=== PATIENT | female | born 1935 | race Two or more races ===

== ENCOUNTER 2017-01-04 12:48 | Inpatient (IN) | payer OTHER ==
--- NOTE | 2017-01-04 13:11 | PDOC ---
History of Present Illness - History of Present Illness Initial Comments: 01/04/17 13:45 Patient is an 80 year old female with significant medical hx of HTN, CAD, cardiomyopathy, s/p pacemaker, gastritis, dementia, and anxiety/depression who has been sent to the ED by PMD for three days of weakness and AMS. Patient is accompanied by family members who provided history. The patient saw PMD, Dr. Knight, in the office today for complaint of headache and drowsiness. The patient also had complaints of behavioral changes. Family reports that the patient has been more confused and today the patient didn't want to take her medications. Due to dementia, the patient had difficulty characterizing her symptoms. She notes that she has been taking clonazepam for sleep. Denies fevers, chills, nausea, vomiting, diarrhea. PMD: Antonia Patel MD <Debbie Joe - Last Filed: 01/04/17 14:39> - General History Source: Patient Exam Limitations: No Limitations <Ashu Barahona - Last Filed: 01/04/17 15:00> - General Chief Complaint: Altered Mental Status Stated Complaint: AMS Time Seen by Provider: 01/04/17 12:57 Past History <Debbie Joe - Last Filed: 01/04/17 14:39> - Past Medical History Cardiac Disorders: Yes Dementia: ([place].) HTN: Yes Suicide Attempt (Hx): No - Surgical History Cardiac Surgery: Yes (PM: 04/2015) - Psycho/Social/Smoking Cessation Hx Anxiety: No Suicidal Ideation: No Smoking History: Never smoked Hx Alcohol Use: No Drug/Substance Use Hx: No Substance Use Type: None <Ashu Barahona - Last Filed: 01/04/17 15:00> - Past Medical History Allergies/Adverse Reactions: Allergies Allergy/AdvReac Type Severity Reaction Status Date / Time Penicillins Allergy Unknown Verified 01/04/17 12:51 Home Medications: Ambulatory Orders Acetaminophen 325 mg PO DAILY 01/04/17 Aspirin [Aspirin EC] 81 mg PO DAILY 01/04/17 Bisacodyl [Correctol] 5 mg PO DAILY 01/04/17 Carvedilol [Coreg] 6.25 mg PO DAILY 01/04/17 Citalopram Hydrobromide [Celexa -] 10 mg PO DAILY 01/04/17 Diclofenac Sodium [Voltaren] 100 gm TP DAILY 01/04/17 Digoxin [Lanoxin -] 0.25 mg PO DAILY 01/04/17 Ergocalciferol [Drisdol -] 50,000 unit PO Q7D@1000 01/04/17 Furosemide [Lasix] 20 mg PO DAILY 01/04/17 Halobetasol Prop 0.05% Tp Crm [Ultravate (Nf)] 1 applic TP DAILY 01/04/17 Losartan Potassium 50 mg PO DAILY 01/04/17 Memantine HCl [Namenda Xr] 14 mg PO DAILY 01/04/17 Mirabegron [Myrbetriq] 50 mg PO DAILY 01/04/17 Rosuvastatin Calcium [Crestor] 10 mg PO DAILY 01/04/17 Review of Systems - Review of Systems Comments:: 01/04/17 13:53 GENERAL/CONSTITUTIONAL: Weakness, drowsiness. No fever or chills. HEAD, EYES, EARS, NOSE AND THROAT: No change in vision. No ear pain or discharge. No sore throat. CARDIOVASCULAR: No chest pain or shortness of breath. RESPIRATORY: No cough, wheezing, or hemoptysis. GASTROINTESTINAL: No nausea, vomiting, diarrhea or constipation. GENITOURINARY: No dysuria, frequency, or change in urination. MUSCULOSKELETAL: No joint or muscle swelling or pain. No neck or back pain. SKIN: No rash NEUROLOGIC: Confusion, headaches. No vertigo, loss of consciousness, or change in strength/sensation. <Debbie Joe - Last Filed: 01/04/17 14:39> *Physical Exam - Vital Signs Last Vital Signs Temp Pulse Resp BP Pulse Ox 98.7 F 80 20 137/60 96 01/04/17 12:50 01/04/17 12:50 01/04/17 12:50 01/04/17 12:50 01/04/17 12:50 - Physical Exam Comments: 01/04/17 13:54 GENERAL: Awake, alert, in no acute distress HEAD: No signs of trauma EYES: PERRLA, EOMI, sclera anicteric, conjunctiva clear ENT: Auricles normal inspection, hearing grossly normal, nares patent, oropharynx clear without exudates. Moist mucosa NECK: Normal ROM, supple, no lymphadenopathy, JVD, or masses LUNGS: Breath sounds equal, clear to auscultation bilaterally. No wheezes, and no crackles HEART: Regular rate and rhythm, normal S1 and S2, no murmurs, rubs or gallops ABDOMEN: Soft, nontender, normoactive bowel sounds. No guarding, no rebound. No masses EXTREMITIES: Normal range of motion, no edema. No clubbing or cyanosis. No cords, erythema, or tenderness NEUROLOGICAL: AAOx1. Confused. Cranial nerves II through XII grossly intact. Normal speech, normal gait SKIN: Warm, Dry, normal turgor, no rashes or lesions noted. ENDOCRINE: No increased thirst. No abnormal weight change. HEMATOLOGIC/LYMPHATIC: No anemia, easy bleeding, or history of blood clots. ALLERGIC/IMMUNOLOGIC: No hives or skin allergy. <Debbie Joe - Last Filed: 01/04/17 14:39> Heart Score/ECG Review #1 ECG reviewed & interpreted by me at: 13:50 01/04/17 14:11 NSR 75, LBBB, scarbossa negative, QTC 500 msec <Ashu Barahona - Last Filed: 01/04/17 15:00> ED Treatment Course - LABORATORY CBC & Chemistry Diagram: 01/04/17 13:20 01/04/17 13:20 - ADDITIONAL ORDERS Additional order review: 01/04/17 13:20 RBC 4.76 MCV 88.3 MCHC 32.9 RDW 13.5 MPV 7.6 Neutrophils % 57.8 Lymphocytes % 25.5 D Monocytes % 13.0 H Eosinophils % 2.7 Basophils % 1.0 - RADIOLOGY Radiograph Interpretation: 01/04/17 14:39 Chest X-Ray Impression: Large heart. Pacemaker. New congestive changes since 06/09/2016. Reported By: Matthew Cage MD Head CT Impression: No significant interval change or gross acute intracranial pathology is identified. Reported By: Lokesh Menchaca MD <Debbie Joe - Last Filed: 01/04/17 14:39> - LABORATORY CBC & Chemistry Diagram: 01/04/17 13:20 01/04/17 13:20 - RADIOLOGY Radiology Studies Ordered: Category Date Time Status HEAD CT WITHOUT CONTRAST [CT] Stat CT Scan 01/04/17 13:09 Ordered CHEST X-RAY PORTABLE* [RAD] Stat Radiology 01/04/17 13:09 Ordered <Ashu Barahona - Last Filed: 01/04/17 15:00> Medical Decision Making - Medical Decision Making 01/04/17 13:17 A portion of this note was documented by scribe services under my direction. I have reviewed the details of the note, within reason, and agree with the documentation with the following case summary and management plan written by me. Patient treated in the ED. Nursing notes are reviewed and incorporated into the medical decision-making. Vital signs reviewed. Peripheral IV access obtained by the nurse, laboratory studies are drawn and sent, reviewed and interpreted by myself. Vital Signs Temp Pulse Resp BP Pulse Ox 98.7 F 80 20 137/60 96 01/04/17 12:50 01/04/17 12:50 01/04/17 12:50 01/04/17 12:50 01/04/17 12:50 81 year old female with past medical history of pacemaker, lower back pain, hypertension, coronary disease, cardiomyopathy with left ventricular ejection fraction 30% status post pacemaker, gastritis, depression, anxiety, dementia, diverticulosis sent in by her primary care physician Dr. Knight for weakness. The patient has been experiencing symptoms for 3 days. PATIENT had seen her doctor today. He was noted that she was complaining about headaches and changes in her behavior and drowsy. Patient has been taking clonazepam for sleep. However, patient is unable to further characterize her symptoms given her dementia. Family denies any fevers, vomiting, diarrhea. Patient denies any pain at this time. Differential is broad and includes infectious such as urinary tract infection, cardiac, metabolic, neurologic. May also be medication related with her clonazepam. We'll obtain a CAT scan the head, labs, urinalysis, EKG and reassess. 01/04/17 14:11 CBC, BMP 01/04/17 13:20 01/04/17 13:20 CMP Sodium 144 mmol/L (136-145) 01/04/17 13:20 Potassium 4.0 mmol/L (3.5-5.1) 01/04/17 13:20 Chloride 106 mmol/L (98-107) 01/04/17 13:20 Carbon Dioxide 29 mmol/L (21-32) 01/04/17 13:20 Anion Gap 9 (8-16) 01/04/17 13:20 BUN 20 mg/dL (7-18) H D 01/04/17 13:20 Creatinine 0.9 mg/dL (0.55-1.02) 01/04/17 13:20 Creat Clearance w eGFR 59.80 (>60) 01/04/17 13:20 Random Glucose 85 mg/dL (74-106) 01/04/17 13:20 Calcium 9.2 mg/dL (8.5-10.1) 01/04/17 13:20 Magnesium 2.4 mg/dL (1.8-2.4) 01/04/17 13:20 Total Bilirubin 0.3 mg/dL (0.2-1.0) D 01/04/17 13:20 AST 22 U/L (15-37) 01/04/17 13:20 ALT 23 U/L (12-78) D 01/04/17 13:20 Alkaline Phosphatase 69 U/L (45-117) 01/04/17 13:20 Creatine Kinase 67 IU/L (26-192) 01/04/17 13:20 Troponin I < 0.02 ng/ml (0.00-0.05) 01/04/17 13:20 Total Protein 6.7 g/dl (6.4-8.2) 01/04/17 13:20 Albumin 3.5 g/dl (3.4-5.0) 01/04/17 13:20 01/04/17 14:58 Urine Test Results Urine Color Ltyellow 01/04/17 13:28 Urine Appearance Clear 01/04/17 13:28 Urine pH 6.0 (5.0-8.0) D 01/04/17 13:28 Urine Protein Negative (NEGATIVE) 01/04/17 13:28 Urine Glucose (UA) Negative (NEGATIVE) 01/04/17 13:28 Urine Ketones Negative (NEGATIVE) 01/04/17 13:28 Urine Blood Negative (NEGATIVE) 01/04/17 13:28 Urine Nitrite Negative (NEGATIVE) 01/04/17 13:28 Urine Bilirubin Negative (NEGATIVE) 01/04/17 13:28 Ur Leukocyte Esterase Negative (NEGATIVE) 01/04/17 13:[address] reviewed. No acute findings. Chest xray shows some congestive changes, but given that patient is not SOB, will not treat at this time. I spoken with the patient's family. It appears that the patient has recently in the last 6 weeks been initiated on clonazepam for sleep. Last dosages have lately been getting later with approximate 1 AM in the morning. There is potential some suspicion that this may be medication related with the clonazepam and the patient's weakness. However, after speaking with patient's primary care physician Dr. Patel, in given her appearance in the primary care' s office this morning, he recommends observation in the hospital. He requests neurological consultation. Case was discussed with Dr. Redding we'll just the patient for med surge observation. <Ashu Barahona - Last Filed: 01/04/17 15:00> *DC/Admit/Observation/Transfer - Attestations Scribe Attestion: 01/04/17 13:55 Documentation prepared by Debbie Joe, acting as medical examiner for Ashu Barahona MD. <Debbie Joe - Last Filed: 01/04/17 14:39> - Discharge Dispostion Admit: Yes <Ashu Barahona - Last Filed: 01/04/17 15:00> Diagnosis at time of Disposition: Altered mental status Qualifiers: Altered mental status type: unspecified Qualified Code(s): R41.82 - Altered mental status, unspecified - Discharge Dispostion Condition at time of disposition: Stable - Referrals Referrals: Antonia Patel MD [Primary Care Provider] -
[2017-01-04 13:29] LABS: EOSINOPHIL 2.7 % (0-4.5); MCH 29.1 pg (25.7-33.7); MCHC 32.9 g/dl (32.0-36.0); MEAN CELL VOLUME 88.3 fl (80-96); MEAN PLT VOLUME 7.6 fl (7.5-11.1); NEUTROPHILS 57.8 % (42.8-82.8); PLATELET COUNT 208 K/MM3 (134-434); RDW 13.5 % (11.6-15.6); WHITE BLOOD COUNT 8.9 K/mm3 (4.0-10.0)
[2017-01-04 14:02] LABS: ALBUMIN 3.5 g/dl (3.4-5.0); ANION GAP 9 (8-16); CALCIUM 9.2 mg/dL (8.5-10.1); CO2 29 mmol/L (21-32); CREATININE 0.9 mg/dL (0.55-1.02); GLUCOSE,RANDOM 85 mg/dL (74-106); INR 1.13 (0.82-1.09); MAGNESIUM 2.4 mg/dL (1.8-2.4); PROTHROMBIN TIME (PATIENT) 12.5 SEC (9.98-11.88); SGPT/ALT 23 U/L (12-78)
[2017-01-04 14:05] LABS: ACTIVATED PTT 33.1 SECONDS (26.9-34.4); ALK PHOS 69 U/L (45-117); BILIRUBIN,TOTAL 0.3 mg/dL (0.2-1.0); SGOT/AST 22 U/L (15-37); TOT PROT 6.7 g/dl (6.4-8.2); TROPONIN I < 0.02 ng/ml (0.00-0.05)
[2017-01-04 14:23] LABS: URINE APPEARANCE CLEAR; URINE BILIRUBIN NEGATIVE (NEGATIVE); URINE BLOOD NEGATIVE (NEGATIVE); URINE COLOR LTYELLOW; URINE GLUCOSE (UA) NEGATIVE (NEGATIVE); URINE KETONE NEGATIVE (NEGATIVE); URINE LEUK ESTERASE NEGATIVE (NEGATIVE); URINE NITRITE NEGATIVE (NEGATIVE); URINE PROTEIN NEGATIVE (NEGATIVE); URINE UROBILINOGEN NEGATIVE E.U./dl (0.2-1.0)
[2017-01-04 17:39] VITALS: BMI 24.2
--- NOTE | 2017-01-04 19:04 | CONSULT ---
Consult - text type - Consultation Consultation Note: NEUROLOGY CONSULTATION is greatly appreciated: This 81 yo woman lives with her daughter who provides the history. PMH sig for HTN, Chol, ASHD, CHF depression and dementia. Walks with walker at home. On carvedilol, cozaar, lasix, crestor, digoxin, citalopram and namenda XR (14 mg ). Apparently has deteriorated in recent weeks with increasingly unsteady gait. Started on clonazepam 10 days ago. No obvious lab abnormality. CT of head (reviewed): Moderately severe, diffuse, atrophy without CVA or focal pathology. EMA: Neck supple. Cor reg. No bruits. In a diaper. NEURO: Awake, alert, cooperative. Follows simple commands in [place]. Cannot give the month, year or [facility]. + Glabella, snout, palmomentals and grasps. No drift or tremor. No cogwheeling. Moves all fours well. Normal reflexes including AJ's. Toes downgoing. No obvious dystaxia Withdraws all fours to pinch, symmetrically. IMP: Non-focal exam sig for moderately severe, bilateral cerebral dysfunction ( OMS, chronic features). Most c/w Alzheimer's disease (AD) Cause or causes of the recent, subacute deterioration remains uncertain but suspect changes in meds may contribute. Suggest: Hold clonazepam D/C myrbetriq D/C citalopram Agree with B12, TSH, RPR. R/O occult infection Mementine 5 mg PO BID after breakfast and dinner. Query family and Dr. Patel about any other recent changes in meds. PT for mobilization and gait with walker. Outpatient neurology f/u for Rx with central cholinesterase inhibition. Thank you very much, Emmanuel Alvarez MD
[2017-01-04 19:22] LABS: ARTERIAL BLD GAS O2 SATURATION 96.5 % (90-98.9); ARTERIAL BLOOD GAS BASE EXCESS 2.6 meq/l (-2-2); ARTERIAL BLOOD GAS PO2 78.5 mmHg (68-100)
[2017-01-04 19:23] LABS: ALLENS TEST POSITIVE
[2017-01-04 19:24] LABS: ART PUNCT SITE RIGHT RADIAL; ARTERIAL BLOOD GAS HCO3 27.4 meq/L (22-26); LPM/O2% 21%; PT. ON O2? NO; TYPE OF O2 R/A
[2017-01-04] MEDS: CARVEDILOL 6.25 MG TABLET (FP) PO SCH (21:29)
[2017-01-04] MEDS: QUEtiapine FUMARATE 25 MG TABLET (FP) PO SCH (21:29)
[2017-01-04] MEDS: HEPARIN NA (PORCINE) 5,000 UNITS/ML 1ML VIAL SQ SCH (21:29)
[2017-01-04] MEDS: MEMANTINE HCL 5 MG TABLET (UD) PO SCH (21:29)
[2017-01-05] MEDS: ACETAMINOPHEN 325 MG TABLET (FP) PO PRN (01:26)
[2017-01-05 07:54] LABS: BASOPHIL 0.8 % (0-2.0); EOSINOPHIL 4.1 % (0-4.5); MCH 28.8 pg (25.7-33.7); MCHC 32.9 g/dl (32.0-36.0); MEAN CELL VOLUME 87.6 fl (80-96); MEAN PLT VOLUME 7.8 fl (7.5-11.1); NEUTROPHILS 46.1 % (42.8-82.8); PLATELET COUNT 213 K/MM3 (134-434); RDW 13.6 % (11.6-15.6); WHITE BLOOD COUNT 7.5 K/mm3 (4.0-10.0)
--- NOTE | 2017-01-05 08:54 | HP ---
Admitting History and Physical - Admission History of Present Illness: Patient is an 80 year old female with significant medical hx of HTN, CAD, cardiomyopathy, s/p pacemaker, gastritis, dementia, and anxiety/depression who has been sent to the ED by PMD for three days of weakness and AMS. Patient is accompanied by family members who provided history. The patient saw PMD, Dr. Knight, in the office for complaint of headache and drowsiness. The patient also had complaints of behavioral changes. Family reports that the patient has been more confused and the patient didn't want to take her medications. Due to dementia, the patient had difficulty characterizing her symptoms. She notes that she has been taking clonazepam for sleep. Denies fevers, chills, nausea, vomiting, diarrhea. 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 Cardiovascular: Yes: CAD, HTN, Hyperlipdemia, Other (CARDIOMYOPATHY) Gastrointestinal: Yes: Gastritis ...: No Psych: Yes: Anxiety, Depression - Past Surgical History Past Surgical History: Yes: AICD - Smoking History Smoking history: Never smoked - Alcohol/Substance Use Hx Alcohol Use: No Home Medications - Allergies Allergies/Adverse Reactions: Allergies Allergy/AdvReac Type Severity Reaction Status Date / Time Penicillins Allergy Unknown Verified 01/04/17 12:51 - Home Medications Home Medications: Ambulatory Orders Acetaminophen 325 mg PO DAILY 01/04/17 Aspirin [Aspirin EC] 81 mg PO DAILY 01/04/17 Bisacodyl [Correctol] 5 mg PO DAILY 01/04/17 Carvedilol [Coreg] 6.25 mg PO DAILY 01/04/17 Citalopram Hydrobromide [Celexa -] 10 mg PO DAILY 01/04/17 Clonazepam 0.5 mg PO HS 01/04/17 Diclofenac Sodium [Voltaren] 100 gm TP DAILY 01/04/17 Digoxin [Lanoxin -] 0.25 mg PO DAILY 01/04/17 Ergocalciferol [Drisdol -] 50,000 unit PO Q7D@1000 01/04/17 Furosemide [Lasix] 20 mg PO DAILY 01/04/17 Halobetasol Prop 0.05% Tp Crm [Ultravate (Nf)] 1 applic TP DAILY 01/04/17 Losartan Potassium 50 mg PO DAILY 01/04/17 Memantine HCl [Namenda Xr] 14 mg PO DAILY 01/04/17 Mirabegron [Myrbetriq] 50 mg PO DAILY 01/04/17 Rosuvastatin Calcium [Crestor] 10 mg PO DAILY 01/04/17 Physical Examination Vital Signs: Vital Signs Temperature 97.4 F L 01/05/17 06:33 Pulse Rate 79 01/05/17 06:33 Respiratory Rate 18 01/05/17 06:33 Blood Pressure 136/75 01/05/17 06:33 O2 Sat by Pulse Oximetry (%) 98 01/04/17 21:00 Cardiovascular: Yes: Murmur, S1, S2 Respiratory: Yes: Regular, CTA Bilaterally Gastrointestinal: Yes: Normal Bowel Sounds, Soft Edema: No Labs: CBC, BMP 01/05/17 07:10 Imaging - Results Cat Scan: Report Reviewed Problem List - Problems (1) Altered mental status Assessment/Plan: WORSENING DEMENTIA POSSIBLE BEHAVIORAL PSYCH NEURO NOTED AWAIT LABS Code(s): R41.82 - ALTERED MENTAL STATUS, UNSPECIFIED Qualifiers: Altered mental status type: unspecified Qualified Code(s): R41.82 - Altered mental status, unspecified (2) Gastroesophageal reflux disease Code(s): K21.9 - GASTRO-ESOPHAGEAL REFLUX DISEASE WITHOUT ESOPHAGITIS (3) CAD (coronary artery disease) Assessment/Plan: NO CP Code(s): I25.10 - ATHSCL HEART DISEASE OF [place] CORONARY ARTERY W/O ANG PCTRS
--- NOTE | 2017-01-05 09:21 | EKG ---
Test Reason : Blood Pressure : / mmHG Vent. Rate : 075 BPM Atrial Rate : 075 BPM P-R Int : 154 ms QRS Dur : 174 ms QT Int : 448 ms P-R-T Axes : 038 -43 112 degrees QTc Int : 500 ms NORMAL SINUS RHYTHM POSSIBLE LEFT ATRIAL ENLARGEMENT LEFT AXIS DEVIATION LEFT BUNDLE BRANCH BLOCK ABNORMAL ECG WHEN COMPARED WITH ECG OF 09-JUN-2016 13:16, SINUS RHYTHM HAS REPLACED ELECTRONIC VENTRICULAR PACEMAKER Confirmed by STEPHANIE BATISTA, ILENE ([id number]) on 01/05/2017 9:20:56 AM Referred By: Confirmed By:ILENE BROWN MD
[2017-01-05] MEDS ORDERED: PATIENT'S OWN MEDICATION (NON-FORMULARY) (Memantine Hcl [Namenda Xr] 14 MG) PO SCH (10:00)
[2017-01-05] MEDS ORDERED: PATIENT'S OWN MEDICATION (NON-FORMULARY) (Mirabegron [Myrbetriq] 50 MG) PO SCH (10:00)
[2017-01-05] MEDS ORDERED: FUROSEMIDE 20 MG TABLET (FP) PO SCH (10:00)
[2017-01-05] MEDS ORDERED: CITALOPRAM HYDROBROMIDE 10 MG TABLET (FP) PO SCH (10:00)
[2017-01-05] MEDS: FUROSEMIDE 40 MG/4 ML INJECTABLE VIAL IVPB SCH (11:06)
[2017-01-05] MEDS: MEMANTINE HCL 5 MG TABLET (UD) PO SCH ×2 (11:06→21:10)
[2017-01-05] MEDS: HEPARIN NA (PORCINE) 5,000 UNITS/ML 1ML VIAL SQ SCH ×2 (11:06→21:10)
[2017-01-05] MEDS: ASPIRIN COATED 81 MG TABLET.EC PO SCH (11:07)
[2017-01-05] MEDS: ROSUVASTATIN CA 10 MG TABLET (FP) PO SCH (11:07)
[2017-01-05] MEDS: LOSARTAN POTASSIUM 50 MG TABLET (FP) PO SCH (11:07)
[2017-01-05] MEDS: QUEtiapine FUMARATE 25 MG TABLET (FP) PO SCH ×2 (11:07→21:11)
[2017-01-05] MEDS: DIGOXIN 0.25 MG TABLET (FP) PO SCH (11:08)
[2017-01-05] MEDS: CARVEDILOL 6.25 MG TABLET (FP) PO SCH ×2 (11:09→21:10)
[2017-01-05 14:01] LABS: ALBUMIN 3.8 g/dl (3.4-5.0); BILIRUBIN,TOTAL 0.4 mg/dL (0.2-1.0); CALCIUM 9.4 mg/dL (8.5-10.1); COCKROFT - GAULT 50.864; CREATININE 0.9 mg/dL (0.55-1.02)
[2017-01-05 14:25] LABS: THYROID STIMULATING HORMONE 1.25 uIU/ml (0.358-3.74)
--- NOTE | 2017-01-05 15:34 | CON.PSY ---
Psychiatry Consult Chief Complaint: AMS Symptoms: reports: Memory Impairment, Irritability - Previous Psychiatric Treatment Outpatient: None Inpatient: None - Previous Substance Abuse Treatment Outpatient: None Inpatient: None - Current Medications Current Medications: Active Medications Acetaminophen (Tylenol -) 650 mg PO Q4H PRN PRN Reason: FEVER OR PAIN Last Admin: 01/05/17 01:26 Dose: 650 mg Aspirin (Ecotrin -) 81 mg PO DAILY [facility] Last Admin: 01/05/17 11:07 Dose: 81 mg Carvedilol (Coreg -) 6.25 mg PO BID [facility] Last Admin: 01/05/17 11:09 Dose: 6.25 mg Digoxin (Lanoxin -) 0.25 mg PO DAILY [facility] Last Admin: 01/05/17 11:08 Dose: 0.25 mg Furosemide (Lasix Injection -) 40 mg IVPB DAILY [facility] Last Admin: 01/05/17 11:06 Dose: 40 mg Heparin Sodium (Porcine) (Heparin -) 5,000 unit SQ BID [facility] Last Admin: 01/05/17 11:06 Dose: 5,000 unit Losartan Potassium (Cozaar -) 50 mg PO DAILY [facility] Last Admin: 01/05/17 11:07 Dose: 50 mg Memantine (Namenda -) 5 mg PO BID [facility] Last Admin: 01/05/17 11:06 Dose: 5 mg Quetiapine Fumarate (Seroquel -) 12.5 mg PO BID [facility] Last Admin: 01/05/17 11:07 Dose: 12.5 mg Rosuvastatin Calcium (Crestor -) 10 mg PO DAILY [facility] Last Admin: 01/05/17 11:07 Dose: 10 mg - Allergies Allergies: Allergies Allergy/AdvReac Type Severity Reaction Status Date / Time Penicillins Allergy Unknown Verified 01/04/17 12:51 - Current Living Status Usual Living Arrangement: Alone - Current Mental Status Evaluation Appearance: Disheveled Attitude: Cooperative - Affect Affect: Constrictive Appropriateness: Not Appropriate - Mood Mood: Irritable - Speech/Language Expressive: Delayed - Psychomotor Activity Psychomotor Activity: Slowed - Thought Process Thought Process: Loosening of Associations - Thought Content Hallucinations: Absent Delusions: Absent - Self Perception Self Perception: No Impairment - Cognition Orientation: Person Memory, Short Term: 1/3 Memory, Remote with Promptin/3 - Concentration Serial Sevens Intact: No Simple Calculations Intact: No - Abstraction Proverb Interpretation: Impaired Judgement: Moderately Impaired - Insight Insight: Impaired - Impulse Control Impulse Control: Moderately Impaired - Suicidal Ideation Suicidal Ideation: No - Homicidal Ideation Homicidal Ideation: No Assessment/Plan 1) Continue with Seroquel 12.5mg po bid
--- NOTE | 2017-01-05 16:28 | EKG ---
Test Reason : Blood Pressure : / mmHG Vent. Rate : 075 BPM Atrial Rate : 075 BPM P-R Int : 152 ms QRS Dur : 182 ms QT Int : 472 ms P-R-T Axes : 046 -42 126 degrees QTc Int : 527 ms NORMAL SINUS RHYTHM POSSIBLE LEFT ATRIAL ENLARGEMENT LEFT AXIS DEVIATION LEFT BUNDLE BRANCH BLOCK ABNORMAL ECG WHEN COMPARED WITH ECG OF 04-JAN-2017 13:50, NO SIGNIFICANT CHANGE WAS FOUND Confirmed by STEPHANIE BATISTA, ILENE ([id number]) on 01/05/2017 4:28:14 PM Referred By: Joey HOLDEN Confirmed By:ILENE BROWN MD
[2017-01-06] MEDS: MEMANTINE HCL 5 MG TABLET (UD) PO SCH ×2 (11:12→21:43)
[2017-01-06] MEDS: DIGOXIN 0.25 MG TABLET (FP) PO SCH (11:12)
[2017-01-06] MEDS: ASPIRIN COATED 81 MG TABLET.EC PO SCH (11:12)
[2017-01-06] MEDS: LOSARTAN POTASSIUM 50 MG TABLET (FP) PO SCH (11:12)
[2017-01-06] MEDS: FUROSEMIDE 40 MG/4 ML INJECTABLE VIAL IVPB SCH (11:12)
[2017-01-06] MEDS: CARVEDILOL 6.25 MG TABLET (FP) PO SCH ×2 (11:12→21:43)
[2017-01-06] MEDS: HEPARIN NA (PORCINE) 5,000 UNITS/ML 1ML VIAL SQ SCH ×2 (11:12→21:43)
[2017-01-06] MEDS: ROSUVASTATIN CA 10 MG TABLET (FP) PO SCH (11:13)
[2017-01-06] MEDS: QUEtiapine FUMARATE 25 MG TABLET (FP) PO SCH ×2 (11:13→21:43)
--- NOTE | 2017-01-06 13:21 | PN ---
Progress Note, Physician History of Present Illness: CONFUSION - Current Medication List Current Medications: Active Medications Acetaminophen (Tylenol -) 650 mg PO Q4H PRN PRN Reason: FEVER OR PAIN Last Admin: 01/05/17 01:26 Dose: 650 mg Aspirin (Ecotrin -) 81 mg PO DAILY [facility] Last Admin: 01/06/17 11:12 Dose: 81 mg Carvedilol (Coreg -) 6.25 mg PO BID [facility] Last Admin: 01/06/17 11:12 Dose: 6.25 mg Digoxin (Lanoxin -) 0.25 mg PO DAILY [facility] Last Admin: 01/06/17 11:12 Dose: 0.25 mg Furosemide (Lasix Injection -) 40 mg IVPB DAILY [facility] Last Admin: 01/06/17 11:12 Dose: 40 mg Heparin Sodium (Porcine) (Heparin -) 5,000 unit SQ BID [facility] Last Admin: 01/06/17 11:12 Dose: 5,000 unit Losartan Potassium (Cozaar -) 50 mg PO DAILY [facility] Last Admin: 01/06/17 11:12 Dose: 50 mg Memantine (Namenda -) 5 mg PO BID [facility] Last Admin: 01/06/17 11:12 Dose: 5 mg Quetiapine Fumarate (Seroquel -) 12.5 mg PO BID [facility] Last Admin: 01/06/17 11:13 Dose: 12.5 mg Rosuvastatin Calcium (Crestor -) 10 mg PO DAILY [facility] Last Admin: 01/06/17 11:13 Dose: 10 mg - Objective Vital Signs: Vital Signs Temperature 97.6 F 01/06/17 05:38 Pulse Rate 86 01/06/17 11:12 Respiratory Rate 16 01/06/17 05:38 Blood Pressure 132/65 01/06/17 05:38 O2 Sat by Pulse Oximetry (%) 98 01/05/17 09:00 Cardiovascular: Yes: S1, S2 Respiratory: Yes: Regular, CTA Bilaterally Gastrointestinal: Yes: Normal Bowel Sounds, Soft Edema: No Labs: CBC, BMP 01/05/17 07:10 01/05/17 07:30 INR, PTT INR 1.13 (0.82-1.09) 01/04/17 13:20 Problem List - Problems (1) Altered mental status Assessment/Plan: WORSENING DEMENTIA POSSIBLE BEHAVIORAL PSYCH NOTED NEURO NOTED AWAIT LABS Code(s): R41.82 - ALTERED MENTAL STATUS, UNSPECIFIED Qualifiers: Altered mental status type: unspecified Qualified Code(s): R41.82 - Altered mental status, unspecified (2) Gastroesophageal reflux disease Code(s): K21.9 - GASTRO-ESOPHAGEAL REFLUX DISEASE WITHOUT ESOPHAGITIS (3) CAD (coronary artery disease) Assessment/Plan: NO CP Code(s): I25.10 - ATHSCL HEART DISEASE OF [place] CORONARY ARTERY W/O ANG PCTRS (4) Elevated brain natriuretic peptide (BNP) level Assessment/Plan: NO SIGNS OF FAILURE MONITOR Code(s): R79.89 - OTHER SPECIFIED ABNORMAL FINDINGS OF BLOOD CHEMISTRY
[2017-01-06] MEDS: ACETAMINOPHEN 325 MG TABLET (FP) PO PRN (21:44)
[2017-01-07] MEDS: DIGOXIN 0.25 MG TABLET (FP) PO SCH (10:42)
[2017-01-07] MEDS: ROSUVASTATIN CA 10 MG TABLET (FP) PO SCH (10:42)
[2017-01-07] MEDS: CARVEDILOL 6.25 MG TABLET (FP) PO SCH ×2 (10:43→21:14)
[2017-01-07] MEDS: HEPARIN NA (PORCINE) 5,000 UNITS/ML 1ML VIAL SQ SCH ×2 (10:43→21:14)
[2017-01-07] MEDS: MEMANTINE HCL 5 MG TABLET (UD) PO SCH ×2 (10:43→21:13)
[2017-01-07] MEDS: ASPIRIN COATED 81 MG TABLET.EC PO SCH (10:43)
[2017-01-07] MEDS: QUEtiapine FUMARATE 25 MG TABLET (FP) PO SCH ×2 (10:43→21:13)
[2017-01-07] MEDS: FUROSEMIDE 40 MG/4 ML INJECTABLE VIAL IVPB SCH (10:43)
[2017-01-07] MEDS: LOSARTAN POTASSIUM 50 MG TABLET (FP) PO SCH (10:43)
--- NOTE | 2017-01-07 13:15 | PN ---
Progress Note, Physician Chief Complaint: in fidencio [address] was agitated at night responds to her name able to follow comands on exam - Current Medication List Current Medications: Active Medications Acetaminophen (Tylenol -) 650 mg PO Q4H PRN PRN Reason: FEVER OR PAIN Last Admin: 01/06/17 21:44 Dose: 650 mg Aspirin (Ecotrin -) 81 mg PO DAILY [facility] Last Admin: 01/07/17 10:43 Dose: 81 mg Carvedilol (Coreg -) 6.25 mg PO BID [facility] Last Admin: 01/07/17 10:43 Dose: 6.25 mg Digoxin (Lanoxin -) 0.25 mg PO DAILY [facility] Last Admin: 01/07/17 10:42 Dose: 0.25 mg Furosemide (Lasix Injection -) 40 mg IVPB DAILY [facility] Last Admin: 01/07/17 10:43 Dose: 40 mg Heparin Sodium (Porcine) (Heparin -) 5,000 unit SQ BID [facility] Last Admin: 01/07/17 10:43 Dose: 5,000 unit Losartan Potassium (Cozaar -) 50 mg PO DAILY [facility] Last Admin: 01/07/17 10:43 Dose: 50 mg Memantine (Namenda -) 5 mg PO BID [facility] Last Admin: 01/07/17 10:43 Dose: 5 mg Quetiapine Fumarate (Seroquel -) 12.5 mg PO BID [facility] Last Admin: 01/07/17 10:43 Dose: 12.5 mg Rosuvastatin Calcium (Crestor -) 10 mg PO DAILY [facility] Last Admin: 01/07/17 10:42 Dose: 10 mg - Objective Vital Signs: Vital Signs Temperature 97.2 F L 01/07/17 10:00 Pulse Rate 74 01/07/17 10:42 Respiratory Rate 20 01/07/17 10:00 Blood Pressure 140/71 01/07/17 10:00 O2 Sat by Pulse Oximetry (%) 98 01/06/17 20:48 Constitutional: Yes: Calm Cardiovascular: Yes: Regular Rate and Rhythm, S1, S2 Respiratory: Yes: CTA Bilaterally, Diminished (at bases) Gastrointestinal: Yes: Normal Bowel Sounds, Soft Edema: No Labs: CBC, BMP 01/05/17 07:10 01/05/17 07:30 INR, PTT INR 1.13 (0.82-1.09) 05/05/17 13:20 Problem List - Problems (1) Altered mental status Assessment/Plan: neuro and psych input appreciated requiring fidencio vest Code(s): R41.82 - ALTERED MENTAL STATUS, UNSPECIFIED Qualifiers: Altered mental status type: unspecified Qualified Code(s): R41.82 - Altered mental status, unspecified (2) CHF (congestive heart failure) Assessment/Plan: iv lasix cxr shows improvement monitor labs\ echo to asses ventricular functon and ejection fraction cardio Code(s): I50.9 - HEART FAILURE, UNSPECIFIED
--- NOTE | 2017-01-07 16:27 | CON.CARD ---
Consult Consult Specialty:: Cardiology Referred by:: Dr. Redding Reason for Consultation:: Cardiology History. PPM - History of Present Illness Chief Complaint: Presently offering no complaints History of Present Illness: This is an 80 year old female with a PMH of HTN, CAD, s/p pacemaker, and dementia. She presents now to the ER with worsening weakness and worsening mental functioning with behavioral changes. Presently hemodynamically stable and denies cardiac complaints. Troponin 0.02 BNP 1497 CXR 01/05/17 with CHF EKG with a LBBB. - Past Medical History HAND SCUDDER: Yes: Dementia Cardio/Vascular: Yes: CAD, HTN, Hyperlipdemia, Other (CARDIOMYOPATHY) Gastrointestinal: Yes: Gastritis ...: No Psych: Yes: Anxiety, Depression - Past Surgical History Past Surgical History: Yes: AICD - Alcohol/Substance Use Hx Alcohol Use: No - Smoking History Smoking history: Never smoked - Social History Usual Living Arrangement: Alone Home Medications - Allergies Allergies/Adverse Reactions: Allergies Allergy/AdvReac Type Severity Reaction Status Date / Time Penicillins Allergy Unknown Verified 01/04/17 12:51 - Home Medications Home Medications: Ambulatory Orders Acetaminophen 325 mg PO DAILY 01/04/17 Aspirin [Aspirin EC] 81 mg PO DAILY 01/04/17 Bisacodyl [Correctol] 5 mg PO DAILY 01/04/17 Carvedilol [Coreg] 6.25 mg PO DAILY 01/04/17 Citalopram Hydrobromide [Celexa -] 10 mg PO DAILY 01/04/17 Clonazepam 0.5 mg PO HS 01/04/17 Diclofenac Sodium [Voltaren] 100 gm TP DAILY 01/04/17 Digoxin [Lanoxin -] 0.25 mg PO DAILY 01/04/17 Ergocalciferol [Drisdol -] 50,000 unit PO Q7D@1000 01/04/17 Furosemide [Lasix] 20 mg PO DAILY 01/04/17 Halobetasol Prop 0.05% Tp Crm [Ultravate (Nf)] 1 applic TP DAILY 01/04/17 Losartan Potassium 50 mg PO DAILY 01/04/17 Memantine HCl [Namenda Xr] 14 mg PO DAILY 01/04/17 Mirabegron [Myrbetriq] 50 mg PO DAILY 01/04/17 Rosuvastatin Calcium [Crestor] 10 mg PO DAILY 05/05/17 Review of Systems Unable to obtain ROS, reason: As per HPI Vital Signs: Vital Signs Temperature 97.9 F 01/07/17 14:53 Pulse Rate 65 01/07/17 14:53 Respiratory Rate 20 01/07/17 10:00 Blood Pressure 107/53 01/07/17 14:53 O2 Sat by Pulse Oximetry (%) 98 01/06/17 20:48 Constitutional: Yes: No Distress Respiratory: Yes: CTA Bilaterally (with minimal bibasilar crackles.) Gastrointestinal: Yes: Soft Cardiovascular: Yes: Other (RRR NL S1S2 with a 1/6 SCOTTY RUSB) JVD: No Carotid Bruit: No Edema: No Peripheral Pulses WNL: Yes Neurological: Yes: Other (Dementia) - Other Data Labs, Other Data: CBC, BMP 01/05/17 07:10 01/05/17 07:30 INR, PTT INR 1.13 (0.82-1.09) 01/04/17 13:20 NSR LBBB Assessment/Plan Systolic CHF ^BNP and CXR with CHF agree with Lasix 40mg IVSS daily Check I/O's, weights/Lytes while diuressing Continue Coreg 6.25 mg PO BID Continue Digoxin but would favor 0.125 mg daily as opposed to 0.25 mg daily because of trials suggesting a higher mortality in elderly women at the higher Digoxin dose. Agree with ASA 81 mg daily and Crestopr 10 mg daily for secondary prevention Consider an echocardiogram unless there is a recent one as an outpatient Will follow with you.
[2017-01-08] MEDS: QUEtiapine FUMARATE 25 MG TABLET (FP) PO SCH ×2 (09:31→21:18)
[2017-01-08] MEDS: MEMANTINE HCL 5 MG TABLET (UD) PO SCH ×2 (09:31→21:18)
[2017-01-08] MEDS: ASPIRIN COATED 81 MG TABLET.EC PO SCH (09:31)
[2017-01-08] MEDS: HEPARIN NA (PORCINE) 5,000 UNITS/ML 1ML VIAL SQ SCH ×2 (09:31→21:18)
[2017-01-08] MEDS: LOSARTAN POTASSIUM 50 MG TABLET (FP) PO SCH (09:31)
[2017-01-08] MEDS: FUROSEMIDE 40 MG/4 ML INJECTABLE VIAL IVPB SCH (09:31)
[2017-01-08] MEDS: DIGOXIN 0.25 MG TABLET (FP) PO SCH (09:31)
[2017-01-08] MEDS: ROSUVASTATIN CA 10 MG TABLET (FP) PO SCH (09:31)
[2017-01-08] MEDS: CARVEDILOL 6.25 MG TABLET (FP) PO SCH ×2 (09:31→21:18)
[2017-01-08 09:37] LABS: ALBUMIN 3.8 g/dl (3.4-5.0); CALCIUM 9.2 mg/dL (8.5-10.1); COCKROFT - GAULT 39.678; CREATININE 1.1 mg/dL (0.55-1.02)
[2017-01-08 09:40] LABS: BILIRUBIN,TOTAL 0.6 mg/dL (0.2-1.0); TOT PROT 6.9 g/dl (6.4-8.2)
[2017-01-08] MEDS: DIGOXIN 0.125 MG TABLET (FP) PO SCH (10:05)
[2017-01-08] MEDS ORDERED: FUROSEMIDE 40 MG/4 ML INJECTABLE VIAL IVPB ONE (10:15)
--- NOTE | 2017-01-08 10:15 | PN ---
Progress Note, Physician Chief Complaint: fidencio st was in hallway at DC all night very agitated and confused on iv lasix - Current Medication List Current Medications: Active Medications Acetaminophen (Tylenol -) 650 mg PO Q4H PRN PRN Reason: FEVER OR PAIN Last Admin: 01/06/17 21:44 Dose: 650 mg Aspirin (Ecotrin -) 81 mg PO DAILY [facility] Last Admin: 01/08/17 09:31 Dose: 81 mg Carvedilol (Coreg -) 6.25 mg PO BID [facility] Last Admin: 01/08/17 09:31 Dose: 6.25 mg Digoxin (Lanoxin -) 0.125 mg PO DAILY [facility] Last Admin: 01/08/17 10:05 Dose: Not Given Furosemide (Lasix Injection -) 40 mg IVPB DAILY [facility] Last Admin: 01/08/17 09:31 Dose: 40 mg Heparin Sodium (Porcine) (Heparin -) 5,000 unit SQ BID [facility] Last Admin: 01/08/17 09:31 Dose: 5,000 unit Losartan Potassium (Cozaar -) 50 mg PO DAILY [facility] Last Admin: 01/08/17 09:31 Dose: 50 mg Memantine (Namenda -) 5 mg PO BID [facility] Last Admin: 01/08/17 09:31 Dose: 5 mg Quetiapine Fumarate (Seroquel -) 12.5 mg PO BID [facility] Last Admin: 01/08/17 09:31 Dose: 12.5 mg Rosuvastatin Calcium (Crestor -) 10 mg PO DAILY [facility] Last Admin: 01/08/17 09:31 Dose: 10 mg - Objective Vital Signs: Vital Signs Temperature 98.2 F 01/08/17 09:08 Pulse Rate 71 01/08/17 09:31 Respiratory Rate 20 01/08/17 09:08 Blood Pressure 139/62 01/08/17 09:08 O2 Sat by Pulse Oximetry (%) 98 01/06/17 20:48 Constitutional: Yes: Calm Cardiovascular: Yes: Regular Rate and Rhythm, S1, S2 Respiratory: Yes: CTA Bilaterally Gastrointestinal: Yes: Normal Bowel Sounds, Soft Labs: CBC, BMP 01/05/17 07:10 01/08/17 08:00 INR, PTT INR 1.13 (0.82-1.09) 01/04/17 13:20 Problem List - Problems (1) Altered mental status Assessment/Plan: neuro and psych input appreciated requiring fidencio vest cannot discharge home psych FU for today Code(s): R41.82 - ALTERED MENTAL STATUS, UNSPECIFIED Qualifiers: Altered mental status type: unspecified Qualified Code(s): R41.82 - Altered mental status, unspecified (2) CHF (congestive heart failure) Assessment/Plan: iv lasix cxr shows improvement monitor labs inc bun /cr zheng change to po lasix from tommorow echo says severly reduced Ejection fraction dig dose decreased and coreg ad asa and cozaar and crestor Code(s): I50.9 - HEART FAILURE, UNSPECIFIED Qualifiers: Congestive heart failure type: systolic
--- NOTE | 2017-01-08 15:09 | PN ---
Progress Note, Physician Chief Complaint: Presently comfortable History of Present Illness: This is an 80 year old female with a PMH of HTN, CAD, s/p pacemaker, and dementia. She presents now to the ER with worsening weakness and worsening mental functioning with behavioral changes. Presently hemodynamically stable and denies cardiac complaints. Troponin 0.02 BNP 1497 CXR 01/05/17 with CHF EKG with a LBBB. 01/08/17 Presently without complaints, appears comfortable - Current Medication List Current Medications: Active Medications Acetaminophen (Tylenol -) 650 mg PO Q4H PRN PRN Reason: FEVER OR PAIN Last Admin: 01/06/17 21:44 Dose: 650 mg Aspirin (Ecotrin -) 81 mg PO DAILY [facility] Last Admin: 01/08/17 09:31 Dose: 81 mg Carvedilol (Coreg -) 6.25 mg PO BID [facility] Last Admin: 01/08/17 09:31 Dose: 6.25 mg Digoxin (Lanoxin -) 0.125 mg PO DAILY [facility] Last Admin: 01/08/17 10:05 Dose: Not Given Furosemide (Lasix -) 40 mg PO DAILY [facility] Heparin Sodium (Porcine) (Heparin -) 5,000 unit SQ BID [facility] Last Admin: 01/08/17 09:31 Dose: 5,000 unit Losartan Potassium (Cozaar -) 50 mg PO DAILY [facility] Last Admin: 01/08/17 09:31 Dose: 50 mg Memantine (Namenda -) 5 mg PO BID [facility] Last Admin: 01/08/17 09:31 Dose: 5 mg Quetiapine Fumarate (Seroquel -) 12.5 mg PO BID [facility] Last Admin: 01/08/17 09:31 Dose: 12.5 mg Rosuvastatin Calcium (Crestor -) 10 mg PO DAILY [facility] Last Admin: 01/08/17 09:31 Dose: 10 mg - Objective Vital Signs: Vital Signs Temperature 98.2 F 01/08/17 09:08 Pulse Rate 71 01/08/17 09:31 Respiratory Rate 20 01/08/17 09:08 Blood Pressure 139/62 01/08/17 09:08 O2 Sat by Pulse Oximetry (%) 98 01/06/17 20:48 Constitutional: Yes: Calm Cardiovascular: Yes: Regular Rate and Rhythm, S1, S2 (No MRHG) Respiratory: Yes: CTA Bilaterally Gastrointestinal: Yes: Soft Extremities: Yes: WNL Edema: No Neurological: Yes: Other (Dementia) Labs: CBC, BMP 01/05/17 07:10 01/08/17 08:00 INR, PTT INR 1.13 (0.82-1.09) 01/04/17 13:20 Assessment/Plan Systolic CHF ^BNP and CXR with CHF agree with Lasix 40mg IVSS daily Agree with Lasix 40 mg PO daily Continue Coreg 6.25 mg PO BID Continue Digoxin but would favor 0.125 mg daily as opposed to 0.25 mg daily because of trials suggesting a higher mortality in elderly women at the higher Digoxin dose. Agree with ASA 81 mg daily and Crestor 10 mg daily for secondary prevention Echo results noted EF 27.4% Severely reduced LV function. Mild MR Trace AI Continue medical therapy for CHF
--- NOTE | 2017-01-09 09:23 | PN ---
Progress Note, Physician - Current Medication List Current Medications: Active Medications Acetaminophen (Tylenol -) 650 mg PO Q4H PRN PRN Reason: FEVER OR PAIN Last Admin: 01/06/17 21:44 Dose: 650 mg Aspirin (Ecotrin -) 81 mg PO DAILY [facility] Last Admin: 01/08/17 09:31 Dose: 81 mg Carvedilol (Coreg -) 6.25 mg PO BID [facility] Last Admin: 01/08/17 21:18 Dose: 6.25 mg Digoxin (Lanoxin -) 0.125 mg PO DAILY [facility] Last Admin: 01/08/17 10:05 Dose: Not Given Furosemide (Lasix -) 40 mg PO DAILY [facility] Heparin Sodium (Porcine) (Heparin -) 5,000 unit SQ BID [facility] Last Admin: 01/08/17 21:18 Dose: 5,000 unit Losartan Potassium (Cozaar -) 50 mg PO DAILY [facility] Last Admin: 01/08/17 09:31 Dose: 50 mg Memantine (Namenda -) 5 mg PO BID [facility] Last Admin: 01/08/17 21:18 Dose: 5 mg Quetiapine Fumarate (Seroquel -) 12.5 mg PO BID [facility] Last Admin: 01/08/17 21:18 Dose: 12.5 mg Rosuvastatin Calcium (Crestor -) 10 mg PO DAILY [facility] Last Admin: 01/08/17 09:31 Dose: 10 mg - Objective Vital Signs: Vital Signs Temperature 97.1 F L 01/09/17 09:14 Pulse Rate 65 01/09/17 09:14 Respiratory Rate 20 01/09/17 09:14 Blood Pressure 136/59 01/09/17 09:14 O2 Sat by Pulse Oximetry (%) 98 01/06/17 20:48 Labs: CBC, BMP 01/05/17 07:10 01/08/17 08:00 INR, PTT INR 1.13 (0.82-1.09) 01/04/17 13:20 Problem List - Problems (1) Altered mental status Assessment/Plan: WORSENING DEMENTIA POSSIBLE BEHAVIORAL PSYCH NOTED NEURO NOTED AWAIT LABS CC--PLACEMENT Code(s): R41.82 - ALTERED MENTAL STATUS, UNSPECIFIED Qualifiers: Altered mental status type: unspecified Qualified Code(s): R41.82 - Altered mental status, unspecified (2) Gastroesophageal reflux disease Code(s): K21.9 - GASTRO-ESOPHAGEAL REFLUX DISEASE WITHOUT ESOPHAGITIS (3) CAD (coronary artery disease) Assessment/Plan: NO CP Code(s): I25.10 - ATHSCL HEART DISEASE OF [place] CORONARY ARTERY W/O ANG PCTRS (4) CHF (congestive heart failure) Assessment/Plan: CARDIO Systolic CHF ^BNP and CXR with CHF agree with Lasix 40mg IVSS daily Check I/O's, weights/Lytes while diuressing Continue Coreg 6.25 mg PO BID Continue Digoxin but would favor 0.125 mg daily as opposed to 0.25 mg daily because of trials suggesting a higher mortality in elderly women at the higher Digoxin dose. Agree with ASA 81 mg daily and Crestopr 10 mg daily for secondary prevention Consider an echocardiogram unless there is a recent one as an outpatient Code(s): I50.9 - HEART FAILURE, UNSPECIFIED Qualifiers: Congestive heart failure type: systolic Congestive heart failure chronicity: acute on chronic Qualified Code(s): I50.23 - Acute on chronic systolic (congestive) heart failure
[2017-01-09] MEDS: DIGOXIN 0.125 MG TABLET (FP) PO SCH (09:37)
[2017-01-09] MEDS: MEMANTINE HCL 5 MG TABLET (UD) PO SCH (09:37)
[2017-01-09] MEDS: CARVEDILOL 6.25 MG TABLET (FP) PO SCH (09:37)
[2017-01-09] MEDS: LOSARTAN POTASSIUM 50 MG TABLET (FP) PO SCH (09:37)
[2017-01-09] MEDS: HEPARIN NA (PORCINE) 5,000 UNITS/ML 1ML VIAL SQ SCH (09:38)
[2017-01-09] MEDS: QUEtiapine FUMARATE 25 MG TABLET (FP) PO SCH (09:38)
[2017-01-09] MEDS: ASPIRIN COATED 81 MG TABLET.EC PO SCH (09:38)
[2017-01-09] MEDS: ROSUVASTATIN CA 10 MG TABLET (FP) PO SCH (09:38)
[2017-01-09] MEDS ORDERED: FUROSEMIDE 40 MG TABLET (FP) PO SCH (10:00)
[2017-01-09 10:52] LABS: CALCIUM 9.5 mg/dL (8.5-10.1); COCKROFT - GAULT 39.763; CREATININE 1.1 mg/dL (0.55-1.02)
--- NOTE | 2017-01-09 11:57 | DS ---
Physical Examination Vital Signs: Vital Signs Temperature 97.1 F L 01/09/17 09:14 Pulse Rate 65 01/09/17 09:37 Respiratory Rate 20 01/09/17 09:14 Blood Pressure 136/59 01/09/17 09:14 O2 Sat by Pulse Oximetry (%) 98 01/06/17 20:48 Labs: CBC, BMP 01/05/17 07:10 01/09/17 10:05 Discharge Summary Reason For Visit: AMS Current Active Problems Altered mental status (Acute) CAD (coronary artery disease) (Acute) CHF (congestive heart failure) (Acute) Hospital Course: Patient is an 80 year old female with significant medical hx of HTN, CAD, cardiomyopathy, s/p pacemaker, gastritis, dementia, and anxiety/depression who has been sent to the ED by PMD for three days of weakness and AMS. Patient is accompanied by family members who provided history. The patient saw PMD, Dr. Knight, in the office for complaint of headache and drowsiness. The patient also had complaints of behavioral changes. Family reports that the patient has been more confused and the patient didn't want to take her medications. Due to dementia, the patient had difficulty characterizing her symptoms. She notes that she has been taking clonazepam for sleep. Denies fevers, chills, nausea, vomiting, diarrhea. THIS AM PT CONFUSED NO FURTHER HISTORY - Past Medical History VP PATIENT: Yes: Dementia Cardiovascular: Yes: CAD, HTN, Hyperlipdemia, Other (CARDIOMYOPATHY) Gastrointestinal: Yes: Gastritis ...: No Psych: Yes: Anxiety, Depression - Past Surgical History Past Surgical History: Yes: AICD - Problems (1) Altered mental status Assessment/Plan: WORSENING DEMENTIA POSSIBLE BEHAVIORAL PSYCH NOTED NEURO NOTED AWAIT LABS neuro MP: Non-focal exam sig for moderately severe, bilateral cerebral dysfunction ( OMS, chronic features). Most c/w Alzheimer's disease (AD) Cause or causes of the recent, subacute deterioration remains uncertain but suspect changes in meds may contribute. Suggest: Hold clonazepam D/C myrbetriq D/C citalopram Agree with B12, TSH, RPR. R/O occult infection Mementine 5 mg PO BID after breakfast and dinner. Query family and Dr. Patel about any other recent changes in meds. PT for mobilization and gait with walker. Outpatient neurology f/u for Rx with central cholinesterase inhibition. Code(s): R41.82 - ALTERED MENTAL STATUS, UNSPECIFIED Qualifiers: Altered mental status type: unspecified Qualified Code(s): R41.82 - Altered mental status, unspecified (2) Gastroesophageal reflux disease Code(s): K21.9 - GASTRO-ESOPHAGEAL REFLUX DISEASE WITHOUT ESOPHAGITIS (3) CAD (coronary artery disease) Assessment/Plan: NO CP Code(s): I25.10 - ATHSCL HEART DISEASE OF [place] CORONARY ARTERY W/O ANG PCTRS (4) CHF (congestive heart failure) Assessment/Plan: CARDIO Systolic CHF ^BNP and CXR with CHF agree with Lasix 40mg IVSS daily Check I/O's, weights/Lytes while diuressing Continue Coreg 6.25 mg PO BID Continue Digoxin but would favor 0.125 mg daily as opposed to 0.25 mg daily because of trials suggesting a higher mortality in elderly women at the higher Digoxin dose. Agree with ASA 81 mg daily and Crestopr 10 mg daily for secondary prevention Consider an echocardiogram unless there is a recent one as an outpatient Code(s): I50.9 - HEART FAILURE, UNSPECIFIED Qualifiers: Congestive heart failure type: systolic Congestive heart failure chronicity: acute on chronic Qualified Code(s): I50.23 - Acute on chronic systolic (congestive) heart failure Condition: Improved - Instructions Referrals: Antonia Patel MD [Primary Care Provider] - 2 Weeks Disposition: VNS/HOME HEALTH CARE - Home Medications Comprehensive Discharge Medication List: Ambulatory Orders Aspirin [Aspirin EC] 81 mg PO DAILY 01/04/17 Bisacodyl [Correctol] 5 mg PO DAILY 01/04/17 Citalopram Hydrobromide [Celexa -] 10 mg PO DAILY 01/04/17 Diclofenac Sodium [Voltaren] 100 gm TP DAILY 01/04/17 Ergocalciferol [Drisdol -] 50,000 unit PO Q7D@1000 01/04/17 Halobetasol Prop 0.05% Tp Crm [Ultravate (Nf) -] 1 applic TP DAILY 01/04/17 Losartan Potassium 50 mg PO DAILY 01/04/17 Memantine HCl [Namenda Xr] 14 mg PO DAILY 01/04/17 Rosuvastatin Calcium [Crestor] 10 mg PO DAILY 01/04/17 Acetaminophen [Tylenol .Regular Strength -] 650 mg PO Q4H PRN #0 tablet Carvedilol [Coreg -] 6.25 mg PO BID tablet 01/09/17 Digoxin [Lanoxin -] 0.125 mg PO DAILY #30 tablet 01/09/17 Furosemide [Lasix -] 40 mg PO DAILY #30 tablet 01/09/17 Quetiapine Fumarate [Seroquel -] 12.5 mg PO BID #60 tablet 01/09/17
[2017-01-09 14:05] VITALS: BP 121/81; PULSE 85; TEMP 97.4
== END 2017-01-09 16:20 | disposition home health service (06) | DRG 917 ==
LOC: SUPCPDRO 12:48 → JER 12:48 → JERBED 15:00 → J6S 16:15 → OBSVTOIN 17:48
PROVIDERS: ADMIT Family Medicine; ATTEND Family Medicine
DX: T42.4X5A Adverse effect of benzodiazepines, initial encounter (principal); I50.23 Acute on chronic systolic (congestive) heart failure; F03.91 Unspecified dementia, unspecified severity, with behavioral disturbance; I42.9 Cardiomyopathy, unspecified; I13.0 Hypertensive heart and chronic kidney disease with heart failure and stage 1 through stage 4 chronic kidney disease, or unspecified chronic kidney disease; I25.10 Atherosclerotic heart disease of native coronary artery without angina pectoris; E78.5 Hyperlipidemia, unspecified; Z95.0 Presence of cardiac pacemaker; K21.9 Gastro-esophageal reflux disease without esophagitis; G30.9 Alzheimer's disease, unspecified; Y92.89 Other specified places as the place of occurrence of the external cause; R41.82 Altered mental status, unspecified
CPT/HCPCS: 36415; 36600; 70450-TC; 71010-TC; 80048; 80053; 80162; 81003; 82550; 82607; 82803; 83735; 83880; 84443; 84484; 85025; 85610; 85730; 87086; 93005; 93010; 93306-TC; 99283-25; G0378; J1644

== ENCOUNTER 2018-01-09 17:26 | Emergency (ER) | payer MEDICARE, OTHER ==
[2018-01-09 17:57] VITALS: BP 151/78; PULSE 75; TEMP 98.2; BMI 25.4
[2018-01-09] MEDS ORDERED: SODIUM CHLORIDE 1,000 ML IV SCH (18:15)
--- NOTE | 2018-01-09 18:26 | PDOC ---
History of Present Illness - History of Present Illness Initial Comments: 01/09/18 18:31 Patient is an 82 year old female with a significant past medical history of HTN , CAD, cardiomyopathy, s/p pacemaker, gastritis, dementia, and anxiety/ depression, who presents to the ED with complaints of abdominal pain that began 3 hours prior to ED arrival. As per patient's home help aide, patient was eating when she began to experiencing gradual diffuse lower abdominal pain. Patient reports experiencing superpubic pain but does not rate pain on a scale. Patient aid states, becoming worried about the pain after not subsiding overtime, prompting them to come into the ED for further evaluation. Denies chest pain, Sob. Denies nausea, vomiting. Denies fever,chills. Denies dysuria, hematuria, constipation, diarrhea. Denies trauma to affected area. Allergies: Penicillin Social history: No smoking. No alcohol. No illicit drugs. Surgical history: AICD PMD: Dr. Antonia Patel <Erasmo Em - Last Filed: 01/09/18 18:31> - General History Source: Patient, Family Exam Limitations: No Limitations <Ashu Barahona - Last Filed: 01/24/18 09:20> - General Chief Complaint: Pain Stated Complaint: ABDOMINAL PAIN Time Seen by Provider: 01/09/18 17:55 Past History <Erasmo Em - Last Filed: 01/09/18 18:31> - Past Medical History Cardiac Disorders: Yes COPD: No Dementia: Yes (ALZHEIMERS.) GI Disorders: Yes (GASTRITIS. CONSTIPATION.) HTN: Yes - Surgical History Cardiac Surgery: Yes (PM: 04/2015) - Suicide/Smoking/Psychosocial Hx Smoking History: Never smoked Have you smoked in the past 12 months: No Information on smoking cessation initiated: No Hx Alcohol Use: No Drug/Substance Use Hx: No Substance Use Type: None Hx Substance Use Treatment: No <Ashu Barahona - Last Filed: 01/24/18 09:20> - Past Medical History Allergies/Adverse Reactions: Allergies Allergy/AdvReac Type Severity Reaction Status Date / Time Penicillins Allergy Unknown Verified 01/09/18 19:59 Home Medications: Ambulatory Orders Aspirin [Aspirin EC] 81 mg PO DAILY 01/04/17 Bisacodyl [Correctol] 5 mg PO DAILY 01/04/17 Citalopram Hydrobromide [Celexa -] 10 mg PO DAILY 01/04/17 Ergocalciferol [Vitamin D2] 50,000 unit PO Q7D@1000 01/04/17 Losartan Potassium 50 mg PO DAILY 01/04/17 Memantine HCl [Namenda Xr] 14 mg PO DAILY 01/04/17 Rosuvastatin Calcium [Crestor] 10 mg PO DAILY 01/04/17 Acetaminophen [Tylenol .Regular Strength -] 650 mg PO Q4H PRN #0 tablet Carvedilol [Coreg -] 6.25 mg PO BID tablet 01/09/17 Digoxin [Lanoxin -] 0.125 mg PO DAILY #30 tablet 01/09/17 Furosemide [Lasix -] 40 mg PO DAILY #30 tablet 01/09/17 Quetiapine Fumarate [Seroquel -] 12.5 mg PO BID #60 tablet 01/09/17 Folic Acid 1 mg PO DAILY 01/09/18 Mirabegron [Myrbetriq] 25 mg PO ASDIR 01/09/18 Review of Systems - Review of Systems Able to Perform ROS?: Yes Comments:: 01/09/18 18:31 GENERAL/CONSTITUTIONAL: No fever or chills. No weakness. HEAD, EYES, EARS, NOSE AND THROAT: No change in vision. No ear pain or discharge. No sore throat. CARDIOVASCULAR: No chest pain or shortness of breath. RESPIRATORY: No cough, wheezing, or hemoptysis. GASTROINTESTINAL: +Lower abdominal pain. No nausea, vomiting, diarrhea or constipation. GENITOURINARY: No dysuria, frequency, or change in urination. MUSCULOSKELETAL: No joint or muscle swelling or pain. No neck or back pain. SKIN: No rash NEUROLOGIC: No headache, vertigo, loss of consciousness, or change in strength/ sensation. ENDOCRINE: No increased thirst. No abnormal weight change. HEMATOLOGIC/LYMPHATIC: No anemia, easy bleeding, or history of blood clots. ALLERGIC/IMMUNOLOGIC: No hives or skin allergy. <Erasmo Em - Last Filed: 01/09/18 18:31> *Physical Exam - Vital Signs Last Vital Signs Temp Pulse Resp BP Pulse Ox 98.2 F 75 20 151/78 100 01/09/18 17:51 01/09/18 17:51 01/09/18 17:51 01/09/18 17:51 01/09/18 17:51 - Physical Exam Comments: 01/09/18 18:31 GENERAL: Awake, alert, and fully oriented, in no acute distress HEAD: No signs of trauma EYES: PERRLA, EOMI, sclera anicteric, conjunctiva clear ENT: Auricles normal inspection, hearing grossly normal, nares patent, oropharynx clear without exudates. Moist mucosa NECK: Normal ROM, supple, no lymphadenopathy, JVD, or masses LUNGS: Breath sounds equal, clear to auscultation bilaterally. No wheezes, and no crackles HEART: Regular rate and rhythm, normal S1 and S2, no murmurs, rubs or gallops ABDOMEN: +Left lower abdominal tenderness. +Right lower abdominal tenderness. + Mid abdominal tenderness. +Superpubic tenderness. Soft, normoactive bowel sounds. No guarding, no rebound. No masses EXTREMITIES: Normal range of motion, no edema. No clubbing or cyanosis. No cords, erythema, or tenderness NEUROLOGICAL: Cranial nerves II through XII grossly intact. Normal speech, normal gait SKIN: Warm, Dry, normal turgor, no rashes or lesions noted. <Erasmo Em - Last Filed: 01/09/18 18:31> - Vital Signs Last Vital Signs Temp Pulse Resp BP Pulse Ox 98.2 F 75 20 151/78 100 01/09/18 17:51 01/09/18 17:51 01/09/18 17:51 01/09/18 17:51 01/09/18 17:51 <Ashu Barahona - Last Filed: 01/24/18 09:20> ED Treatment Course - LABORATORY CBC & Chemistry Diagram: 01/09/18 18:15 01/09/18 18:15 - RADIOLOGY Radiology Studies Ordered: Category Date Time Status ABDOMEN & PELVIS CT WITH CONTR [CT] Stat CT Scan 01/09/18 18:01 Ordered <Ashu Barahona - Last Filed: 01/24/18 09:20> Medical Decision Making - Medical Decision Making 01/09/18 18:25 A portion of this note was documented by scribe services under my direction. I have reviewed the details of the note, within reason, and agree with the documentation with the following case summary and management plan written by me. Patient treated in the ED. Nursing notes are reviewed and incorporated into the medical decision-making. Vital signs reviewed. Peripheral IV access obtained by the nurse, laboratory studies are drawn and sent, reviewed and interpreted by myself. Vital Signs Temp Pulse Resp BP Pulse Ox 98.2 F 75 20 151/78 100 01/09/18 17:51 01/09/18 17:51 01/09/18 17:51 01/09/18 17:51 01/09/18 17:51 82 year old female with Past medical history dementia, CHF, coronary disease, GERD, dementia, hypertension, hyperlipidemia presents with lower abdominal pain for last several hours. The patient was well and in her usual state health this point. The patient's family had noted that the patient started developing lower abdominal pain and discomfort. No nausea no vomiting. No fevers. No chest pain. Differential includes diverticulitis, cystitis, colitis, appendicitis. We'll obtain labs, urinalysis and a CAT scan and pelvis and reassess. 01/09/18 19:11 Pt signed out to Dr. Novoa for further management. <Ashu Barahona - Last Filed: 01/24/18 09:20> *DC/Admit/Observation/Transfer - Attestations Scribe Attestion: 01/09/18 18:31 Documentation prepared by Erasmo Em, acting as program medical director for Ashu Barahona MD, MD/DO. <Erasmo Em - Last Filed: 01/09/18 18:31> <Ashu Barahona - Last Filed: 01/24/18 09:20> Diagnosis at time of Disposition: Abdominal pain, Left against medical advice - Discharge Dispostion Disposition: AGAINST MEDICAL ADVICE Condition at time of disposition: Stable - Referrals Referrals: Antonia Patel MD [Primary Care Provider] - - Patient Instructions Printed Discharge Instructions: DI for Abdominal Pain-Adult Additional Instructions: Please follow up with your primary care doctor as soon as possible to get results of studies. - Post Discharge Activity
[2018-01-09 18:54] LABS: BASO % 0.4 % (0-2.0); EOS % 3.7 % (0-4.5); HEMATOCRIT 36.8 % (32.4-45.2); HEMOGLOBIN 12.5 GM/dL (10.7-15.3); LYMPH % 18.1 % (8-40); MCH 30.2 pg (25.7-33.7); MCHC 33.9 g/dl (32.0-36.0); MEAN CELL VOLUME 88.9 fl (80-96); MEAN PLT VOLUME 8.3 fl (7.5-11.1); MONO % 10.9 % (3.8-10.2); NEUT % 66.9 % (42.8-82.8); PLATELET COUNT 198 K/MM3 (134-434); RBC 4.14 M/mm3 (3.60-5.2); RDW 14.3 % (11.6-15.6); WHITE BLOOD COUNT 9.1 K/mm3 (4.0-10.0)
[2018-01-09 19:34] LABS: ALBUMIN 4.1 g/dl (3.4-5.0); ANION GAP 11 (8-16); BLOOD UREA NITROGEN 15 mg/dL (7-18); CALCIUM 9.3 mg/dL (8.5-10.1); CHLORIDE 104 mmol/L (98-107); CO2 26 mmol/L (21-32); CREATININE 1.4 mg/dL (0.55-1.02); GLUCOSE,RANDOM 119 mg/dL (74-106); POTASSIUM 4.6 mmol/L (3.5-5.1); SGOT/AST 25 U/L (15-37); SGPT/ALT 19 U/L (12-78); SODIUM 141 mmol/L (136-145)
[2018-01-09 19:35] LABS: ALK PHOS 62 U/L (45-117); BILIRUBIN,TOTAL 0.5 mg/dL (0.2-1.0); TOT PROT 6.5 g/dl (6.4-8.2)
[2018-01-09 19:36] LABS: LIPASE 214 U/L (73-393)
[2018-01-09 21:51] LABS: URINE APPEARANCE CLEAR; URINE BILIRUBIN NEGATIVE (<2.0 mg/dL); URINE COLOR STRAW; URINE GLUCOSE (UA) NEGATIVE (NEGATIVE); URINE KETONE NEGATIVE (NEGATIVE); URINE LEUK ESTERASE NEGATIVE (NEGATIVE); URINE NITRITE NEGATIVE (NEGATIVE); URINE PROTEIN NEGATIVE (NEGATIVE); URINE UROBILINOGEN NEGATIVE mg/dL (0.2-1.0)
--- NOTE | 2018-01-09 22:31 | PDOC ---
*Physical Exam - Vital Signs Last Vital Signs Temp Pulse Resp BP Pulse Ox 98.2 F 75 20 151/78 100 01/09/18 17:51 01/09/18 17:51 01/09/18 17:51 01/09/18 17:51 01/09/18 17:51 ED Treatment Course - LABORATORY CBC & Chemistry Diagram: 01/09/18 18:15 01/09/18 18:15 - ADDITIONAL ORDERS Additional order review: Laboratory Results 01/09/18 01/09/18 21:17 18:15 Sodium 141 Potassium 4.6 Chloride 104 Carbon Dioxide 26 Anion Gap 11 BUN 15 Creatinine 1.4 H Creat Clearance w eGFR 35.82 Random Glucose 119 H Calcium 9.3 Total Bilirubin 0.5 AST 25 ALT 19 Alkaline Phosphatase 62 Total Protein 6.5 Albumin 4.1 Lipase 214 Urine Color Straw Urine Appearance Clear Urine pH 6.0 Ur Specific Divide 1.005 Urine Protein Negative Urine Glucose (UA) Negative Urine Ketones Negative Urine Blood Negative Urine Nitrite Negative Urine Bilirubin Negative Urine Urobilinogen Negative Ur Leukocyte Esterase Negative 01/09/18 18:15 RBC 4.14 MCV 88.9 MCHC 33.9 RDW 14.3 MPV 8.3 Neutrophils % 66.9 D Lymphocytes % 18.1 D Monocytes % 10.9 H Eosinophils % 3.7 Basophils % 0.4 - RADIOLOGY Radiology Studies Ordered: Category Date Time Status ABDOMEN & PELVIS CT W/O CONTR [CT] Stat CT Scan 01/09/18 20:56 Taken Medical Decision Making - Medical Decision Making 01/09/18 22:27 family didn't want to wait to get results of CT scan, as they felt the were waiting too long. Daughter signed AMA form for patient. Family advised to follow up with pcp tomorrow. *DC/Admit/Observation/Transfer Diagnosis at time of Disposition: Abdominal pain, Left against medical advice - Discharge Dispostion Disposition: AGAINST MEDICAL ADVICE Condition at time of disposition: Stable Decision to Admit order: No - Referrals Referrals: Antonia Patel MD [Primary Care Provider] - - Patient Instructions Printed Discharge Instructions: DI for Abdominal Pain-Adult Additional Instructions: Please follow up with your primary care doctor as soon as possible to get results of studies. - Post Discharge Activity
--- NOTE | 2018-01-10 09:41 | EKG ---
Test Reason : Blood Pressure : / mmHG Vent. Rate : 071 BPM Atrial Rate : 071 BPM P-R Int : 170 ms QRS Dur : 182 ms QT Int : 484 ms P-R-T Axes : 053 -42 146 degrees QTc Int : 525 ms NORMAL SINUS RHYTHM POSSIBLE LEFT ATRIAL ENLARGEMENT LEFT AXIS DEVIATION LEFT BUNDLE BRANCH BLOCK ABNORMAL ECG WHEN COMPARED WITH ECG OF 05-JAN-2017 09:51, NO SIGNIFICANT CHANGE WAS FOUND Confirmed by MARKOS LIRA MD ([id number]) on 01/10/2018 9:41:28 AM Referred By: Confirmed By:MARKOS LIRA MD
== END 2018-01-09 22:35 | disposition left against medical advice (07) ==
LOC: JER 17:26
PROC: 3E0337Z Introduction of Electrolytic and Water Balance Substance into Peripheral Vein, Percutaneous Approach (ICD-10-PCS; principal; 2018-01-09)
DX: R10.30 Lower abdominal pain, unspecified (principal); I10 Essential (primary) hypertension; Z95.0 Presence of cardiac pacemaker; F03.90 Unspecified dementia, unspecified severity, without behavioral disturbance, psychotic disturbance, mood disturbance, and anxiety; F41.8 Other specified anxiety disorders; I25.10 Atherosclerotic heart disease of native coronary artery without angina pectoris
CPT/HCPCS: 36415; 74176-TC; 80053; 81003; 83690; 85025; 87086; 93005; 93010; 99283-25; J7030